=== PATIENT | male | born 1980 | race African-American/Black ===

== ENCOUNTER 2021-09-28 03:48 | Emergency (ER) | payer OTHER, SELFPAY ==
[2021-09-28 03:50] VITALS: BP 139/81; PULSE 60; RESP 16; TEMP 36.1; O2SAT 100; BMI 31.3
--- NOTE | 2021-09-28 04:08 | RAD_ITS ---
EXAM: XR RIGHT SCAPULA COMPLETE CLINICAL INDICATION: trauma TECHNIQUE: Frontal and Y-view of the right scapula. This report was created using [employer] report DocSend technology. COMPARISON: None. FINDINGS: Portions of the scapular are obscured by overlying ribs. Questionable subtle lucency along the glenoid articular surface of the scapula. Questionable lucency along the acromion. Normal alignment at the glenohumeral joint. No evidence for AC joint separation injury. Soft tissues are unremarkable. No pneumothorax. RAD/Scapula IMPRESSION: Questionable lucencies involving the glenoid and acromion with incomplete visualization of the scapula. Therefore recommend shoulder CT without contrast for further investigation. Electronically Signed: Mike Negron MD at 4:51 EDT ,
--- NOTE | 2021-09-28 04:27 | EX.ED.UPPERE ---
HPI History of Present Illness Chief Complaint: Upper Extremity Injury Informant: patient Narrative Narrative: Patient presents with right posterior shoulder/scapular pain. A truck was coming off of a cart. He tried to pull this up onto the cart but the truck slid and fell down. This gave a pulling sensation or motion to his arm. He has pain in the right scapular area. He is right-hand dominant. It is more sore with overhead or pulling motions. Better with rest. No numbness tingling. No chest pain or trouble breathing. PFSH PFSH Medical History no medical history Home Medications naproxen 500 mg PO BID #20 tab 09/28/21 [Rx Last Taken Unknown] Allergy/AdvReac Type Severity Reaction Status Date / Time No Known Allergies Allergy Verified 09/28/21 03:51 Social History Smoking Status: Current every day smoker tobacco type: e-cigarettes ROS ROS ED Constitutional Constitutional ED: Denies fever(s) Cardiovascular Cardiovascular: Denies chest pain, palpitations or racing heartbeat Respiratory/Chest Respiratory/Chest: Denies cough or dyspnea Gastrointestinal Gastrointestinal: Denies abdominal pain, nausea or vomiting Musculoskeletal Musculoskeletal: Reports other Details: See history of present illness. ; Denies neck pain Integumentary Denies rash Neurologic Neurologic: Denies paresthesias or weakness Hematologic/Lymphatic Hematologic/Lymphatic: Denies easy bleeding or easy bruising EXAM Physical Exam Const Vital Signs: 09/28/21 03:50 Temperature 96.9 F L Temperature Source Temporal Pulse Rate 60 Respiratory Rate 16 Blood Pressure 139/81 H Blood Pressure Mean 100 Pulse Ox 100 Oxygen Delivery Method Room Air Positive well nourished and well developed General Appearance ED: well developed and NAD HEENT Reports moist mucous membranes normocephalic Neck full ROM and supple General: Negative for tenderness Chest Wall inspection of chest normal Resp normal respiratory effort and clear to auscultation bilaterally Effort and Inspection: Negative for pain with movement Auscultation: Negative for rales, rhonchi or wheezes Cardio regular rate and regular rhythm GI non-tender Palpation: soft Back/Spine no CVA tenderness Extremity normal to inspection Extremity Narrative: Patient has tenderness really just at the medial scapular near the lower tip on the right. When I have him press out there is no winging of the scapula. He does have some discomfort with that and with overhead motion. No swelling. No subcu air. Neuro moves all extremities, no focal motor deficits and no sensory deficits noted Sensorium / Orientation: alert Skin Lesions: no lesions Rashes: no rashes MDM MDM MDM Narrative Medical decision making narrative: Rays showed a questionable lucency near the glenoid and acromium. They recommended CT without contrast for further investigation. However, patient has no pain out in this area. It is all along the medial surface. It is mostly muscular. His range of motion is good. I do not think we need to acutely do the CT. If there are questions, MRI can be done as an outpatient. His injury is more consistent with muscular strain and pulling. We will start rest, ice nonsteroidals and follow-up. I am going to avoid a sling because the range of motion of the shoulder is actually good. I think the sling would promote more stiffness than benefit. Discharge Plan Triage Chief Complaint: Upper Extremity Injury ED Provider: Dano Khalil Dx/Rx/DC Orders Clinical Impression: Rhomboid muscle strain Instructions: ED Shoulder Sprain Prescriptions: New naproxen 500 MG tablet 500 mg PO BID Qty: 20 RF: 0 [facility] [Primary [facility] Provider] - 3-5 Days Disposition Disposition: Home, Self Care
== END 2021-09-28 05:27 | disposition home or self-care (01) ==
PROVIDERS: Emergency Provider Emergency Medicine; Visit Provider Emergency Medicine
DX: S46.811A Strain of other muscles, fascia and tendons at shoulder and upper arm level, right arm, initial encounter (principal); X50.9XXA Other and unspecified overexertion or strenuous movements or postures, initial encounter; F17.210 Nicotine dependence, cigarettes, uncomplicated
CPT/HCPCS: 73010; 99282